=== PATIENT | female | born 1980 | race Caucasian/White ===

== ENCOUNTER 2023-09-04 10:07 | Emergency (ER) | payer MEDICAID, OTHER ==
[~2023-09-04] VITALS: Ht 170.2 cm; Wt 78.0 kg
[2023-09-04] VITALS (11 sets, daily range): BP systolic 120; BP diastolic 78; TEMP 98.3; O2SAT 94–100
[2023-09-04] MEDS ORDERED: ALBUTEROL FS 2.5 MG/3 ML VIAL.NEB ONE ×3 (10:44→12:32)
[2023-09-04] MEDS ORDERED: IPRATROPIUM NEB FS 0.5 MG/2.5 ML AMPUL.NEB ONE ×2 (10:44→11:21)
[2023-09-04] MEDS: ALBUTEROL FS 2.5 MG/3 ML VIAL.NEB NEB STA (10:50)
[2023-09-04] MEDS: IPRATROPIUM NEB FS 0.5 MG/2.5 ML AMPUL.NEB NEB STA (10:50)
[2023-09-04 10:56] LABS: BASOPHILS # (AUTO) 0.1 K/uL (0.0-0.2); BASOPHILS % (AUTO) 1.3 % (0.0-2.0); EOSINOPHILS # (AUTO) 1.2 K/uL (0.0-0.7); EOSINOPHILS % (AUTO) 13.9 % (0.0-6.0); HEMATOCRIT 43 % (33-45); HEMOGLOBIN 14.3 g/dL (11.5-14.8); LYMPHOCYTES % (AUTO) 34.6 % (20.0-44.0); MEAN CORPUSCULAR HEMOGLOBIN 28 PG (26.0-33.0); MEAN CORPUSCULAR HGB CONC 33 g/dl (31.0-36.0); MEAN CORPUSCULAR VOLUME 84 fL (82-100); MONOCYTES # (AUTO) 0.6 K/uL (0.1-1.30); MONOCYTES % (AUTO) 6.6 % (2.0-12.0); NEUTROPHILS # (AUTO) 3.8 K/uL (1.8-8.9); NEUTROPHILS % (AUTO) 43.6 % (43.0-81.0); PLATELET COUNT (AUTO) 261 K/uL (150-450); RED BLOOD CELL COUNT(AUTO) 5.13 MIL/uL (4.0-5.2); RED CELL DISTRIBUTION WIDTH 14.2 % (11.5-15.0); WHITE BLOOD COUNT (AUTO) 8.7 K/uL (4.3-11.0)
[2023-09-04 11:09] LABS: CALCIUM, SERUM 9.6 mg/dL (8.5-10.1); CARBON DIOXIDE 26 mmol/L (21-32); CHLORIDE 103 mmol/L (98-107); CREATININE 0.7 mg/dL (0.6-1.3); GLUCOSE 94 mg/dL (74-106); POTASSIUM 3.9 mmol/L (3.5-5.1); SODIUM SERUM 137 mmol/L (136-145); UREA NITROGEN, BLOOD 8 mg/dL (7-18)
[2023-09-04 11:32] LABS: NT-PRO BNP 11 pg/mL (0-125)
[2023-09-04] MEDS: ALBUTEROL FS 2.5 MG/3 ML VIAL.NEB NEB ONE (12:37)
[2023-09-04] MEDS ORDERED: PRED50TA PO (13:41)
[2023-09-04] MEDS ORDERED: ALBU8.5H8 INH (13:41)
[2023-09-04] MEDS ORDERED: predniSONE 20 MG TABLET ONE (13:50)
[2023-09-04] MEDS: predniSONE 50 MG TABLET PO ONE (13:54)
== END 2023-09-04 13:59 | disposition home or self-care (01) ==
LOC: ER 10:07
DX: J45.909 Unspecified asthma, uncomplicated (principal); R05.9 Cough, unspecified; R07.89 Other chest pain; Z60.2 Problems related to living alone; Z20.822 Contact with and (suspected) exposure to COVID-19
CPT/HCPCS: 99285; 71045; 87426; 93005; 87804 ×2; 85025; 80048; 36415; 84484; 83880; 84702; 94640 ×2; J7512

== ENCOUNTER 2023-11-01 19:35 | Emergency (ER) | payer OTHER ==
[~2023-11-01] VITALS: Ht 170.2 cm; Wt 63.5 kg
[~2023-11-01 19:35] MED LIST: ALBU8.5H8 INH; PRED50TA PO
[2023-11-01 19:43] VITALS: TEMP 98.1
[2023-11-01 19:49] VITALS: O2SAT 93
[2023-11-01] MEDS: IPRATROPIUM NEB FS 0.5 MG/2.5 ML AMPUL.NEB NEB ONE (19:49)
[2023-11-01] MEDS: ALBUTEROL FS 2.5 MG/3 ML VIAL.NEB NEB ONE (19:49)
[2023-11-01] MEDS ORDERED: ALBUTEROL FS 2.5 MG/3 ML VIAL.NEB ONE (19:51)
[2023-11-01] MEDS ORDERED: IPRATROPIUM NEB FS 0.5 MG/2.5 ML AMPUL.NEB ONE (19:51)
[2023-11-01] MEDS: predniSONE 20 MG TABLET PO ONE (20:00)
[2023-11-01] MEDS ORDERED: predniSONE 20 MG TABLET ONE (20:08)
[2023-11-01] MEDS ORDERED: ALBU18HF2 INH (20:45)
[2023-11-01] MEDS ORDERED: PRED20TA PO (20:45)
[2023-11-01 20:49] VITALS: O2SAT 98; O2SAT 99
[2023-11-01 20:52] VITALS: BP 129/89
[2023-11-01 20:53] VITALS: O2SAT 94
== END 2023-11-01 20:54 | disposition home or self-care (01) ==
LOC: ER 19:41
DX: J45.909 Unspecified asthma, uncomplicated (principal); Z60.2 Problems related to living alone
CPT/HCPCS: 99285; 94644; J7512

== ENCOUNTER 2023-11-15 19:24 | Emergency (ER) | payer OTHER ==
[~2023-11-15] VITALS: Ht 172.7 cm; Wt 79.4 kg
[~2023-11-15 19:24] MED LIST changes: +ALBU18HF2 INH; +PRED20TA PO
[2023-11-15] MEDS ORDERED: predniSONE 20 MG TABLET ONE (20:30)
[2023-11-15] MEDS: predniSONE 20 MG TABLET PO ONE (20:32)
[2023-11-15 20:48] VITALS: O2SAT 97
[2023-11-15] MEDS: ALBUTEROL FS 2.5 MG/3 ML VIAL.NEB NEB ONE (20:48)
[2023-11-15] MEDS: IPRATROPIUM NEB FS 0.5 MG/2.5 ML AMPUL.NEB NEB ONE (20:48)
[2023-11-15] MEDS ORDERED: IPRATROPIUM NEB FS 0.5 MG/2.5 ML AMPUL.NEB ONE (20:52)
[2023-11-15] MEDS ORDERED: ALBUTEROL FS 2.5 MG/3 ML VIAL.NEB ONE (20:52)
[2023-11-15 20:58] VITALS: O2SAT 99
[2023-11-15 21:08] VITALS: O2SAT 99
[2023-11-15] MEDS ORDERED: PRED50TA PO (21:27)
[2023-11-15] MEDS ORDERED: ALBU18HF2 INH (21:27)
[2023-11-15 21:31] VITALS: BP 132/82; TEMP 98.8; O2SAT 99
== END 2023-11-15 21:31 | disposition home or self-care (01) ==
LOC: ER 19:28
DX: J45.901 Unspecified asthma with (acute) exacerbation (principal); Z60.2 Problems related to living alone
CPT/HCPCS: 99285; 94640 ×2; J7512

== ENCOUNTER 2024-03-19 13:50 | Emergency (ER) | payer OTHER ==
[~2024-03-19] VITALS: Ht 170.2 cm; Wt 81.6 kg
[2024-03-19 14:20] VITALS: TEMP 98
[2024-03-19] MEDS ORDERED: predniSONE 20 MG TABLET ONE (14:55)
[2024-03-19 14:58] LABS: EOSINOPHILS % (AUTO) 0.1 % (0.0-6.0); HEMATOCRIT 38 % (33-45); MEAN CORPUSCULAR HEMOGLOBIN 29 PG (26.0-33.0); MONOCYTES # (AUTO) 1.5 K/uL (0.1-1.30)
[2024-03-19 15:06] LABS: BASOPHILS % (AUTO) 0.2 % (0.0-2.0); HEMOGLOBIN 12.9 g/dL (11.5-14.8); LYMPHOCYTES # (AUTO) 2.7 K/uL (0.8-4.8); LYMPHOCYTES % (AUTO) 12.4 % (20.0-44.0); MEAN CORPUSCULAR HGB CONC 34 g/dl (31.0-36.0); MEAN CORPUSCULAR VOLUME 86 fL (82-100); NEUTROPHILS # (AUTO) 17.4 K/uL (1.8-8.9); NEUTROPHILS % (AUTO) 80.3 % (43.0-81.0); PLATELET COUNT (AUTO) 320 K/uL (150-450); RED BLOOD CELL COUNT(AUTO) 4.48 MIL/uL (4.0-5.2); WHITE BLOOD COUNT (AUTO) 21.7 K/uL (4.3-11.0)
[2024-03-19 15:09] LABS: CALCIUM, SERUM 9.6 mg/dL (8.5-10.1); CREATININE 1.1 mg/dL (0.6-1.3); POTASSIUM 3.8 mmol/L (3.5-5.1)
[2024-03-19] MEDS: IV NS 0.9% 1,000 ML BAG IV ONE ×2 (15:18→15:39)
[2024-03-19] MEDS: predniSONE 20 MG TABLET PO ONE (15:19)
[2024-03-19 15:20] VITALS: BP 127/83; O2SAT 97
[2024-03-19] MEDS ORDERED: ALBUTEROL FS 2.5 MG/0.5 ML VIAL.NEB ONE (15:38)
[2024-03-19] MEDS ORDERED: IPRATROPIUM NEB FS 0.5 MG/2.5 ML AMPUL.NEB ONE (15:38)
[2024-03-19] MEDS: IV NS 0.9% 500 ML BAG IV ONE (15:39)
[2024-03-19 15:44] LABS: BILIRUBIN,DIRECT 0.1 mg/dL (0.0-0.2); BILIRUBIN,TOTAL 0.5 mg/dL (0.2-1.0)
[2024-03-19] MEDS: IPRATROPIUM NEB FS 0.5 MG/2.5 ML AMPUL.NEB NEB ONE (15:45)
[2024-03-19] MEDS: ALBUTEROL FS 2.5 MG/3 ML VIAL.NEB NEB ONE (15:45)
[2024-03-19 16:17] LABS: INR 1.04 (0.91-1.10)
[2024-03-19 16:22] LABS: LACTIC ACID 2.6 mmol/L (0.4-2.0)
[2024-03-19] MEDS ORDERED: PIPERACILLIN /TAZOBACTAM 3.375 G in IV D5W 50 ML IV ONE (16:30)
== END 2024-03-19 19:06 | disposition left against medical advice (07) ==
LOC: ER 14:01
DX: R53.1 Weakness (principal); A41.9 Sepsis, unspecified organism; R55 Syncope and collapse; J45.909 Unspecified asthma, uncomplicated; Z79.52 Long term (current) use of systemic steroids; Z20.822 Contact with and (suspected) exposure to COVID-19
CPT/HCPCS: 99285; 96360; 71045; 87426; 93005; 87804 ×2; 84145; 85025; 80048; 87040 ×2; 83605; 80076; 36415; 84443; 84484; 85730; 82962; J7512; J2543; J7060; J7030 ×2; J7040

== ENCOUNTER 2024-03-23 15:12 | Emergency (ER) | payer OTHER | END 2024-03-23 16:56 | disposition left against medical advice (07) | LOC: ER 15:14 | DX: L08.9 Local infection of the skin and subcutaneous tissue, unspecified (principal); Z53.21 Procedure and treatment not carried out due to patient leaving prior to being seen by health care provider ==

== ENCOUNTER 2024-03-27 04:24 | Emergency (ER) | payer OTHER ==
[~2024-03-27] VITALS: Ht 172.7 cm; Wt 81.6 kg
[2024-03-27 06:16] LABS: BASOPHILS # (AUTO) 0.1 K/uL (0.0-0.2); BASOPHILS % (AUTO) 0.6 % (0.0-2.0); EOSINOPHILS # (AUTO) 0.2 K/uL (0.0-0.7); EOSINOPHILS % (AUTO) 2.3 % (0.0-6.0); HEMATOCRIT 34 % (33-45); HEMOGLOBIN 11.7 g/dL (11.5-14.8); LYMPHOCYTES # (AUTO) 2.5 K/uL (0.8-4.8); LYMPHOCYTES % (AUTO) 23.2 % (20.0-44.0); MEAN CORPUSCULAR HEMOGLOBIN 30 PG (26.0-33.0); MEAN CORPUSCULAR HGB CONC 34 g/dl (31.0-36.0); MEAN CORPUSCULAR VOLUME 87 fL (82-100); MONOCYTES # (AUTO) 0.7 K/uL (0.1-1.30); MONOCYTES % (AUTO) 6.5 % (2.0-12.0); NEUTROPHILS # (AUTO) 7.2 K/uL (1.8-8.9); NEUTROPHILS % (AUTO) 67.4 % (43.0-81.0); PLATELET COUNT (AUTO) 221 K/uL (150-450); RED BLOOD CELL COUNT(AUTO) 3.97 MIL/uL (4.0-5.2); WHITE BLOOD COUNT (AUTO) 10.7 K/uL (4.3-11.0)
[2024-03-27 06:17] LABS: APPEARANCE,URINE CLEAR (CLEAR); BILIRUBIN,URINE NEGATIVE (NEGATIVE); BLOOD, URINE NEGATIVE Ery/uL (NEGATIVE); COLOR,URINE YELLOW (YELLOW); KETONES,URINE TRACE mg/dL (NEGATIVE); LEUKOCYTE ESTERASE ,URINE NEGATIVE (NEGATIVE); NITRITE, URINE NEGATIVE (NEGATIVE); PROTEIN,URINE NEGATIVE (NEGATIVE); UGLUCOSE NEGATIVE (NEGATIVE); UROBILINOGEN,URINE 0.2 EU/dL (0.2)
[2024-03-27 06:21] LABS: CALCIUM, SERUM 9.2 mg/dL (8.5-10.1); CREATININE 0.7 mg/dL (0.6-1.3); POTASSIUM 3.7 mmol/L (3.5-5.1)
[2024-03-27 06:25] LABS: PREGNANCY TEST URINE QUAL NEGATIVE (NEGATIVE)
[2024-03-27 06:33] LABS: RBC,URINE 0-2 /HPF (0-2); SQUAMOUS EPITHELIAL CELL,UR Moderate /HPF (None Seen); WBC,URINE 0-2 /HPF (0-3)
[2024-03-27 06:34] LABS: ADD URINE CULTURE NO; BACTERIA,URINE Few /HPF (None Seen)
[2024-03-27 12:10] LABS: AMPHETAMINE, URINE NEGATIVE (NEGATIVE); BARBITURATE, URINE NEGATIVE (NEGATIVE); BENZODIAZEPINE, URINE NEGATIVE (NEGATIVE); CANNABINOID, URINE NEGATIVE (NEGATIVE); COCCAINE, URINE NEGATIVE (NEGATIVE); OPIATE, URINE NEGATIVE (NEGATIVE); PHENCYCLIDINE SCREEN,URINE NEGATIVE (NEGATIVE)
[2024-03-27 13:02] VITALS: BP 137/82; TEMP 97.8; O2SAT 99
== END 2024-03-27 14:37 ==
LOC: ER 04:26
DX: R42 Dizziness and giddiness (principal); J45.909 Unspecified asthma, uncomplicated; Z79.52 Long term (current) use of systemic steroids; Z20.822 Contact with and (suspected) exposure to COVID-19
CPT/HCPCS: 36415; 80048-TC; 81001; 84703-TC; 85025-TC; G0480